=== PATIENT | male | born 1995 | race Caucasian/White ===

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

== ENCOUNTER 2017-06-11 21:38 | Emergency (ER) | payer OTHER ==
[2017-06-11 21:46] VITALS: BP 112/71
[2017-06-11] MEDS ORDERED: predniSONE TAB* 20 MG PO ONE (22:22)
--- NOTE | 2017-06-11 22:35 | UC ---
FLU HPI - HPI Summary HPI Summary: Patient here accompanied by parents. Reports 2 days of fever, chills, fatigue, sore throat, headache and body aches. Denies cough, congestion or ear pain. - History of Current Complaint Chief Complaint: UCRespiratory Stated Complaint: FLU-LIKE Time Seen by Provider: 06/11/17 21:44 Hx Obtained From: Patient, Family/Tie Layer - MOM AND DAD Onset/Duration: Gradual Onset, Lasting Days, Still Present Severity Currently: Moderate Severity Initially: Moderate Pain Intensity: 4 Pain Scale Used: 0-10 Numeric Associated Signs & Symptoms: Positive: Fever, Myalgia, Sore Throat, Headache. Negative: Cough - Allergy/Home Medications Allergies/Adverse Reactions: Allergies Allergy/AdvReac Type Severity Reaction Status Date / Time No Known Allergies Allergy Verified 06/11/17 21:46 Home Medications: Home Medications Naproxen Sodium [Aleve] 220 mg PO DAILY PRN 06/11/17 [History Confirmed 06/11/17 ] PMH/Surg Hx/FS Hx/Imm Hx Previously Healthy: Yes - Surgical History Surgical History: None - Family History Known Family History: Positive: Hypertension Negative: Cardiac Disease, Diabetes - Social History Alcohol Use: None Substance Use Type: None Smoking Status (MU): Never Smoked Tobacco - Immunization History Most Recent Influenza Vaccination: none Review of Systems Constitutional: Fever, Chills, Fatigue ENT: Sore Throat Respiratory: Negative Cardiovascular: Negative Gastrointestinal: Negative Musculoskeletal: Myalgia Neurological: Headache All Other Systems Reviewed And Are Negative: Yes Physical Exam Triage Information Reviewed: Yes Appearance: Well-Appearing, No Pain Distress, Well-Nourished Vital Signs: Initial Vital Signs Temp 101.1 F 06/11/17 21:39 Pulse 51 06/11/17 21:39 Resp 16 06/11/17 21:39 BP 112/71 06/11/17 21:39 Pulse Ox 98 06/11/17 21:39 Vital Signs Reviewed: Yes Eyes: Positive: Conjunctiva Clear ENT: Positive: Hearing grossly normal, Pharyngeal erythema - MUCOUS IN OP, TMs normal, Tonsillar swelling. Negative: Tonsillar exudate Neck: Positive: Supple, Nontender, No Lymphadenopathy Respiratory Exam: Normal Cardiovascular Exam: Normal Abdomen Description: Positive: Soft Musculoskeletal: Positive: No Edema Neurological: Positive: Alert Psychological: Positive: Normal Response To Family, Age Appropriate Behavior Skin: Negative: rashes Diagnostics - Laboratory Diagnostic Studies Completed/Ordered: FLU NEG Flu Course/Dx - Course Course Of Treatment: Flu test negative. Patient declined strep testing today stating that he often has false positives and does not feel he has strep. He is hoping to get some prednisone to help with his sore throat. Will give prednisone and Magic mouthwash to help with symptoms. - Differential Dx/Diagnosis Provider Diagnoses: ACUTE VIRAL SYNDROME/PHARYNGITIS Discharge - Sign-Out/Discharge Documenting (check all that apply): Discharge - Discharge Plan Condition: Stable Disposition: HOME Prescriptions: Magic Mouth Was-KANDI/MAAL/LIDO* 5 - 10 ml SWISH SWAL QID PRN #100 ml PRN Reason: Pain predniSONE TAB* [Deltasone TAB*] 40 mg PO DAILY #4 tab Patient Education Materials: Pharyngitis (ED), Viral Syndrome (ED) Referrals: Nicanor Choe MD [Medical Doctor] - If Needed Additional Instructions: FLU TEST NEGATIVE. STREP TEST DECLINED. YOUR SYMPTOMS ARE LIKELY VIRALLY MEDIATED AND SHOULD RESOLVE ON THEIR OWN WITH TIME. NO INDICATION FOR ANTIBIOTICS AT PRESENT. REST, HYDRATE, OTC MEDS NEEDED. WILL TREAT WITH PREDNISONE TO HELP WITH INFLAMMATION. MAGIC MOUTHWASH TO HELP WITH SORE THROAT. SEEK FOLLOW-UP IF YOU ARE NOT IMPROVING OVER THE NEXT 1-2 WEEKS. - Billing Disposition and Condition Condition: STABLE Disposition: HOME
== END 2017-06-11 22:30 | disposition home or self-care (01) ==
LOC: UCEAST 21:38
DX: B34.9 Viral infection, unspecified (principal); J02.9 Acute pharyngitis, unspecified
CPT/HCPCS: 87502; 99212; G0463; J7512

== ENCOUNTER 2017-09-23 15:11 | Emergency (ER) | payer OTHER ==
[2017-09-23 15:30] VITALS: BP 102/53
[2017-09-23] MEDS ORDERED: DOXYcycline CAP(*) 100 MG PO ONE (16:49)
--- NOTE | 2017-09-23 16:49 | UC ---
Skin Complaint HPI - HPI Summary HPI Summary: Patient to the urgent care today with his parents patient reports having a tick on his left anterior thigh he believes it became attached on Tuesday when he was walking in some depletes playing golf patient noted for the first time today tick removed by patient - History of Current Complaint Chief Complaint: UCLowerExtremity Time Seen by Provider: 09/23/17 16:42 Stated Complaint: TICK BITE Hx Obtained From: Patient Onset/Duration: Sudden Onset, Resolved Timing: Constant Pain Intensity: 0 Pain Scale Used: 0-10 Numeric Location: Discrete - On Aggravating Factor(s): Nothing Alleviating Factor(s): Nothing Associated Signs & Symptoms: Positive: Negative Related History: Possible Reaction to: Insect - Allergy/Home Medications Allergies/Adverse Reactions: Allergies Allergy/AdvReac Type Severity Reaction Status Date / Time No Known Allergies Allergy Verified 09/23/17 15:30 Review of Systems Constitutional: Negative Skin: Negative, Other - tick left anterior thight may have been attached for up to 4 days Eyes: Negative ENT: Negative Respiratory: Negative Cardiovascular: Negative Gastrointestinal: Negative Genitourinary: Negative Motor: Negative Neurovascular: Negative Musculoskeletal: Negative Neurological: Negative Psychological: Negative Is Patient Immunocompromised?: No All Other Systems Reviewed And Are Negative: Yes PMH/Surg Hx/FS Hx/Imm Hx Previously Healthy: Yes - Surgical History Surgical History: None - Family History Known Family History: Positive: Hypertension Negative: Cardiac Disease, Diabetes - Social History Occupation: Student Lives: With Family Alcohol Use: Occasionally Substance Use Type: None Smoking Status (MU): Never Smoked Tobacco - Immunization History Most Recent Influenza Vaccination: none Physical Exam Triage Information Reviewed: Yes Appearance: Well-Appearing, No Pain Distress, Well-Nourished Vital Signs: Initial Vital Signs Temp 98.3 F 09/23/17 15:26 Pulse 62 09/23/17 15:26 Resp 16 09/23/17 15:26 BP 102/53 09/23/17 15:26 Pulse Ox 100 09/23/17 15:26 Vital Signs Reviewed: Yes Eye Exam: Normal Eyes: Positive: Conjunctiva Clear ENT Exam: Normal ENT: Positive: Normal ENT inspection, Hearing grossly normal, Pharynx normal. Negative: Trismus, Muffled voice, Hoarse voice Dental Exam: Normal Neck exam: Normal Neck: Positive: Supple, Nontender Respiratory Exam: Normal Respiratory: Positive: Chest non-tender, No respiratory distress, No accessory muscle use Cardiovascular Exam: Normal Cardiovascular: Positive: RRR, Pulses Normal, Brisk Capillary Refill Musculoskeletal Exam: Normal Musculoskeletal: Positive: Strength Intact, ROM Intact, No Edema Neurological Exam: Normal Neurological: Positive: Alert, Muscle Tone Normal Psychological Exam: Normal Psychological: Positive: Normal Response To Family, Age Appropriate Behavior Skin Exam: Other Skin: Positive: Other - 5 mm erythema at site of tick---no bulls eye rash Course/Dx - Course Course Of Treatment: Mild soap and water wash observe for signs and symptoms of Lyme disease doxycycline 1 time dose follow with PCP when necessary - Diagnoses Provider Diagnoses: Tick bite, Lyme postexposure prophylaxis Discharge - Sign-Out/Discharge Documenting (check all that apply): Discharge/Admit/Transfer - Discharge Plan Condition: Stable Disposition: HOME Patient Education Materials: Lyme Disease (ED), Tick Bite (ED) Referrals: No Primary Care Phys,NOPCP [Primary Care Provider] - Additional Instructions: follow with primary care provider or return as needed--be observant for signs/ symptoms of Lyme disease--check at least one time daily for ticks - Billing Disposition and Condition Condition: STABLE Disposition: Home
== END 2017-09-23 17:05 | disposition home or self-care (01) ==
LOC: UCEAST 15:11
DX: S70.362A Insect bite (nonvenomous), left thigh, initial encounter (principal); Z79.2 Long term (current) use of antibiotics; W57.XXXA Bitten or stung by nonvenomous insect and other nonvenomous arthropods, initial encounter; Y92.9 Unspecified place or not applicable
CPT/HCPCS: 99211; A9270-GY; G0463

== ENCOUNTER 2018-06-13 21:19 | Emergency (ER) | payer OTHER ==
[2018-06-13 21:54] VITALS: BP 122/51
--- NOTE | 2018-06-13 22:08 | UC ---
Ear Complaint HPI - HPI Summary HPI Summary: 22 yo male presents with right ear feeling plugged for the last 2 days. He tells me that he has had issues with ear wax in the past and thinks this has happened again. Denies fever, sinus symptoms, sore throat. - History of Current Complaint Chief Complaint: UCEar Stated Complaint: EAR ACHE Time Seen by Provider: 06/13/18 22:08 Hx Obtained From: Patient Onset/Duration: Gradual Onset Severity Currently: None Pain Intensity: 0 - Allergies/Home Medications Allergies/Adverse Reactions: Allergies Allergy/AdvReac Type Severity Reaction Status Date / Time No Known Allergies Allergy Verified 06/13/18 21:53 Home Medications: Home Medications NK [No Home Medications Reported] 06/13/18 [History Confirmed 06/13/18] PMH/Surg Hx/FS Hx/Imm Hx - Additional Past Medical History Additional PMH: None - Surgical History Surgical History: None - Family History Known Family History: Positive: Hypertension Negative: Cardiac Disease, Diabetes - Social History Occupation: Student Lives: Dormitory/Roommates Alcohol Use: Occasionally Substance Use Type: None Smoking Status (MU): Never Smoked Tobacco - Immunization History Most Recent Influenza Vaccination: none Review of Systems All Other Systems Reviewed And Are Negative: Yes Constitutional: Positive: Negative Skin: Positive: Negative Eyes: Positive: Negative ENT: Positive: Ear Ache Respiratory: Positive: Negative Cardiovascular: Positive: Negative Gastrointestinal: Positive: Negative Neurological: Positive: Negative Psychological: Positive: Negative Physical Exam - Summary Physical Exam Summary: GENERAL: NAD. WDWN. No pain distress. SKIN: No rashes, sores, lesions, or open wounds. HEENT: Head: AT/NC Eyes: EOM intact. Conjunctiva clear without inflammation or discharge. Ears: Hearing grossly normal. B/L TMs occluded by brown/yellow cerumen. S/p irrigation. TMs intact, no bulging, erythema, or edema. Nose: Nasal mucosa pink and moist. NTTP maxillary and frontal sinus. Throat: Posterior oropharynx without exudates, erythema, or tonsillar enlargement. Uvula midline. NECK: Supple. Nontender. No lymphadenopathy. CHEST: CTAB. No r/r/w. No accessory muscle use. Breathing comfortably and in no distress. CV: RRR. Without m/r/g. Pulses intact. Cap refill <2seconds NEURO: Alert. PSYCH: Age appropriate behavior. Triage Information Reviewed: Yes Vital Signs: Initial Vital Signs Temp 98.5 F 06/13/18 21:51 Pulse 70 06/13/18 21:51 Resp 18 06/13/18 21:51 BP 122/51 06/13/18 21:51 Pulse Ox 99 06/13/18 21:51 Vital Signs Reviewed: Yes Ear Complaint Course/Dx - Course Course Of Treatment: B/L cerumen impaction with successful disimpaction s/p irrigation. Pt experienced complete resolution of symptoms. - Differential Dx/Diagnosis Provider Diagnosis: Cerumen impaction Discharge - Sign-Out/Discharge Documenting (check all that apply): Patient Departure All imaging exams completed and their final reports reviewed: No Studies - Discharge Plan Condition: Stable Disposition: HOME Patient Education Materials: Cerumen Impaction (ED) Referrals: No Primary Care Phys,NOPCP [Primary Care Provider] - Additional Instructions: If you develop a fever, shortness of breath, chest pain, new or worsening symptoms - please call your PCP or go to the ED. - Billing Disposition and Condition Condition: STABLE Disposition: Home
== END 2018-06-13 22:37 | disposition home or self-care (01) ==
LOC: UCEAST 21:19
DX: H61.23 Impacted cerumen, bilateral (principal)
CPT/HCPCS: 99213; G0463

== ENCOUNTER 2018-07-26 12:20 | Emergency (ER) | payer OTHER ==
[2018-07-26 12:57] VITALS: BP 111/63
--- NOTE | 2018-07-26 13:25 | UC ---
Hand/Wrist HPI - HPI Summary HPI Summary: 23 y/o male presents to the urgent care c/o Rt wrist pain and abrasion s/p injury w/ a fallen window about 1 hr ago. Pt reports he was putting a speaker on top of the window and the suddenly the window fell on top of both his wrists. The RT wrist sustained and abrasion and it is difficult to bend his wrist. Pain is 7/10, sharp w/ movement. He has not taken anything to alleviate symptoms. Pt states Hx of Scaphoid fracture 6 years ago. Pt can move finger w/o any difficulty and denies numbness or tingling sensation over the Rt hand or fingers, SOB, chest pain, abdominal pain, BRISENO, N/V/D. Pt is UTD w/ all vaccines for his age. - History Of Current Complaint Chief Complaint: UCUpperExtremity Stated Complaint: R WRIST INJURY Time Seen by Provider: 07/26/18 12:59 Hx Obtained From: Patient Onset/Duration: Sudden Onset, Lasting Hours - 1hr, Still Present Severity Initially: Moderate Severity Currently: Moderate Pain Intensity: 7 Pain Scale Used: 0-10 Numeric Character Of Pain: Sharp - Rt wirst s/p injury w/ a window Aggravating Factor(s): Movement, Flexion, Extension, Pulling Alleviating Factor(s): Rest, Ice Associated Signs And Symptoms: Positive: Swelling, Redness, Bruising, Other - abrasiion over ventral side of the RT wrist. Negative: Fever, Weakness, Numbness/Tingling Related History: Dominant Hand Right - Allergies/Home Medications Allergies/Adverse Reactions: Allergies Allergy/AdvReac Type Severity Reaction Status Date / Time No Known Allergies Allergy Verified 07/26/18 12:57 PMH/Surg Hx/FS Hx/Imm Hx Previously Healthy: Yes - Pt denies PMHX - Surgical History Surgical History: None - Family History Known Family History: Positive: Hypertension Negative: Cardiac Disease, Diabetes - Social History Occupation: Student Lives: With Family Alcohol Use: Occasionally Substance Use Type: None Smoking Status (MU): Never Smoked Tobacco - Immunization History Most Recent Influenza Vaccination: none Vaccination Up to Date: Yes Review of Systems All Other Systems Reviewed And Are Negative: Yes Constitutional: Positive: Negative Skin: Positive: Bruising - ventral side w/ abrasion, swelling and bruise of Rt wirst s/p injury Eyes: Positive: Negative ENT: Positive: Negative Respiratory: Positive: Negative Cardiovascular: Positive: Negative Gastrointestinal: Positive: Negative Genitourinary: Positive: Negative Motor: Positive: Negative Neurovascular: Positive: Negative Musculoskeletal: Positive: Decreased ROM - RT wrist s/p inury, Other: - RT wrist s/p inury w/ a fallen window Neurological: Positive: Negative Psychological: Positive: Negative Is Patient Immunocompromised?: No Physical Exam - Summary Physical Exam Summary: Vital Signs Reviewed: Yes General: Well-Appearing, No Pain Distress, Well-Nourished male adolescent w/o any apparent distress Eyes: Positive: Conjunctiva Clear - PERRLA, EOMI ENT: Positive: Normal ENT inspection, Hearing grossly normal, Pharynx normal, TMs normal, Uvula midline Neck: Positive: Supple, Nontender, No Lymphadenopathy Respiratory: Positive: Chest non-tender, Lungs clear, Normal breath sounds, No respiratory distress Cardiovascular: Positive: RRR, No Murmur, Pulses Normal, Brisk Capillary Refill Abdomen Description: Positive: Nontender, No Organomegaly, Soft. Negative: CVA Tenderness (R), CVA Tenderness (L) Bowel Sounds: Positive: Present Musculoskeletal: Positive: Strength Intact, Other: Neurological Exam: Normal Musculoskeletal: Positive: Wrist: the R wrist is without obvious asymmetry or deformity when compared to the L wrist. positive ventral side of the Rt wrist w / mild soft tissue swelling and abrasion about 2.0cm x 1.0cm in size, tender to palpation. NO obvious deformity. No overlying erythema or warmth. No bony crepitus. NO Point tenderness over the thenar eminence. No scaphoid fullness or tenderness to direct palpation or axial load. Decreased ROM due to pain. Motor/sensory function of ulnar, radial, median nerves intact. Ulnar and radial pulses intact. Psychological Exam: Normal Skin Exam: Normal Triage Information Reviewed: Yes Vital Signs: Initial Vital Signs Temp 98 F 07/26/18 12:55 Pulse 92 07/26/18 12:55 Resp 18 07/26/18 12:55 BP 111/63 07/26/18 12:55 Pulse Ox 100 07/26/18 12:55 Hand/Wrist Course/Dx - Course Course Of Treatment: 23 y/o male presents to the urgent care c/o Rt wrist pain and abrasion s/p injury w/ a fallen window about 1 hr ago. Pt reports he was putting a speaker on top of the window and the suddenly the window fell on top of both his wrists. The RT wrist sustained and abrasion and it is difficult to bend his wrist. Pain is 7/10, sharp w/ movement. He has not taken anything to alleviate symptoms. Pt states Hx of Scaphoid fracture 6 years ago. Pt can move finger w/o any difficulty and denies numbness or tingling sensation over the Rt hand or fingers, SOB, chest pain, abdominal pain, BRISENO, N/V/D. Pt is UTD w/ all vaccines for his age. Hx obtained. Pt w/ an abrasion over the ventral side of the RT wrist about 2.0cm x 1.0cm in size w/ soft tissue swelling and tender to palpation and decrease ROM of Rt wrist a nd full cascade of all fingers. RT wrist X-ray ordered. Impression: There was no fracture, dislocation, soft tissue swelling or FB noted. Probably a RT wrist sprain. Pts wrist immobilized with thumb spica splint. wound irrigated by nurse and cleaned w/ iodine swabs and bacitracin oint applied and covered w/ sterile dressing. PT Advised RICE: Rest, Ice, elevation, take Ibuprofen PO. There was no neurovascular compromise after splint application placed by nurse; the splint was in good alignment and the Pt had good sensation and capillary refill at the time of discharge. Pt advised to f/u w/ Orthopedic Dr Burgos if not improvement of symptoms in 1 week. D/C instructions explained. Pt understood and agreed w/ plan of care. - Differential Dx/Diagnosis Differential Diagnosis/HQI/PQRI: Abrasion, Contusion, Dislocation, Fracture, Puncture Wound, Sprain, Strain, Tendonitis Provider Diagnosis: Right wrist injury, Right wrist sprain, Abrasion of right wrist Discharge - Sign-Out/Discharge Documenting (check all that apply): Patient Departure - d/c home All imaging exams completed and their final reports reviewed: Yes - Discharge Plan Condition: Stable Disposition: HOME Prescriptions: Bacitracin OINTMENT* 1 applic TOPICAL BID #1 tube Patient Education Materials: Wrist Sprain (ED) Referrals: [facility] [place]] - 1 Week Nabeel Burgos MD [Medical Doctor] - 1 Week Additional Instructions: 1-Please take Ibuprofen PO 600mg q6-8hrs prn after meals as directed to alleviate pain and swelling. 2-Please apply ice, keep your wrist immobilized with the splint. Avoid heavy lifting or strenuous exercise. 3- Please apply Bacitracin oint as directed over the abrasion as directed to prevent infection. If signs of infection developed please return to the urgent care or f/u w/ your PCP for further management 3-Please f/u with Orthopedic Dr Burgos or your PCP in 1 week is not improvement of symptoms for further evaluation and treatment. - Billing Disposition and Condition Condition: STABLE Disposition: Home
== END 2018-07-26 13:36 | disposition home or self-care (01) ==
LOC: UCEAST 12:20
DX: S63.501A Unspecified sprain of right wrist, initial encounter (principal); S60.811A Abrasion of right wrist, initial encounter; W23.0XXA Caught, crushed, jammed, or pinched between moving objects, initial encounter; Y92.009 Unspecified place in unspecified non-institutional (private) residence as the place of occurrence of the external cause
CPT/HCPCS: 99213; G0463